=== PATIENT | male | born 1950 | race Caucasian/White ===

== ENCOUNTER 2019-04-11 15:23 | Emergency (ER) | payer MEDICARE, OTHER ==
[2019-04-11 15:45] VITALS: BP 148/83
--- NOTE | 2019-04-11 16:23 | XRAY Report ---
Reason: injury Procedure Date: 04/11/2019 Accession Number: [id number] / [id number] Procedure: XR - Ankle 3 View RT CPT Code: Final Report FULL RESULT: EXAM: RIGHT ANKLE RADIOGRAPHY EXAM DATE: 04/11/2019 04:08 PM. CLINICAL HISTORY: Injury. COMPARISON: None. TECHNIQUE: 3 views. FINDINGS: Bones: Subtle cortical step-off suggested at the lateral malleolus on the ankle mortise view, and there is a subtle transverse lucency seen of the lateral malleolus on the lateral view, suggesting a nondisplaced fracture. No tibial fracture or talar fracture detected. Joints: The ankle mortise appears preserved. No significant ankle joint effusion. Soft Tissues: No subcutaneous radiopaque foreign bodies. Soft tissue prominence at the lateral malleolus. IMPRESSION: Nondisplaced fracture at the lateral malleolus. RADIA
--- NOTE | 2019-04-11 16:24 | XRAY Report ---
Reason: injury Procedure Date: 04/11/2019 Accession Number: [id number] / [id number] Procedure: XR - Foot 3 View RT CPT Code: Final Report FULL RESULT: EXAM: RIGHT FOOT RADIOGRAPHY EXAM DATE: 04/11/2019 04:07 PM. CLINICAL HISTORY: Injury. COMPARISON: None. TECHNIQUE: 3 views. FINDINGS: Bones: A nondisplaced fracture at the lateral malleolus is suggested on the lateral view. No additional fractures detected on current imaging. Joints: No subluxations or dislocation identified. Soft Tissues: No subcutaneous radiopaque foreign body. IMPRESSION: Nondisplaced fracture at the lateral malleolus. RADIA
== END 2019-04-11 17:00 | disposition left against medical advice (07) ==
LOC: ED 15:23
DX: S82.61XA Displaced fracture of lateral malleolus of right fibula, initial encounter for closed fracture (principal); V00.311A Fall from snowboard, initial encounter; Y93.23 Activity, snow (alpine) (downhill) skiing, snowboarding, sledding, tobogganing and snow tubing; Z53.21 Procedure and treatment not carried out due to patient leaving prior to being seen by health care provider

== ENCOUNTER 2020-03-04 15:25 | Outpatient (CLI) | payer MEDICARE, OTHER | END 2020-03-04 15:26 | disposition home or self-care (01) | LOC: COV 15:25 | PROVIDERS: ATTEND Family Medicine | DX: Z20.828 Contact with and (suspected) exposure to other viral communicable diseases (principal) ==

== ENCOUNTER 2022-06-01 06:41 | Outpatient (CLI) | payer MEDICARE, OTHER ==
--- NOTE | 2022-06-01 12:29 | Ultrasound Report ---
PROCEDURE: Aorta Screening INDICATIONS: SCREENING FOR AAA TECHNIQUE: Real time scanning was performed of the aorta and iliac arteries, with image documentatio n. COMPARISON: None. FINDINGS: Aorta: Proximal aortic diameter measures 2.6 x 2.9 cm. Mid-aorta measures 2.1 x 2.5 cm. Distal aor tic diameter is 2.0 x 2.3 cm. Iliac arteries: Right common iliac artery measures 1.3 x 1.4 cm. Left common iliac artery measures 1.3 x 1.3 cm. IMPRESSION: Borderline ectatic infrarenal aorta. Five-year sonographic follow-up is recommended. Reviewed by: Benson Jordan on 06/01/2022 12:28 PM HONORIO Approved by: Benson Jordan on 06/01/2022 12:28 PM PST Station ID: [id number]
== END 2022-06-01 06:42 | disposition home or self-care (01) ==
LOC: DI 06:41
PROVIDERS: ATTEND Nurse Practitioner Family
DX: Z13.6 Encounter for screening for cardiovascular disorders (principal); I77.811 Abdominal aortic ectasia; Z87.891 Personal history of nicotine dependence

== ENCOUNTER 2022-06-10 07:00 | Outpatient (CLI) | payer MEDICARE, OTHER ==
--- NOTE | 2022-06-10 14:07 | XRAY Report ---
PROCEDURE: Chest 2 View X-Ray INDICATIONS: PRODUCTIVE COUGH TECHNIQUE: 2 views of the chest were acquired. COMPARISON: None. FINDINGS: Surgical changes and devices: None. Lungs and pleura: No pleural effusions or pneumothorax. Lungs are clear. Mediastinum: Mediastinal contours are normal. Heart size is normal. Bones and chest wall: No suspicious bony abnormalities. Soft tissues appear unremarkable. IMPRESSION: No concerning consolidation. Reviewed by: Morales Lam MD on 06/10/2022 1:05 PM SAJI Approved by: Morales Lam MD on 06/10/2022 1:05 PM SAJI Station ID: [id number]
== END 2022-06-10 07:01 | disposition home or self-care (01) ==
LOC: DI.S 07:00
PROVIDERS: ATTEND Physician Assistant
DX: R05.8 Other specified cough (principal)

== ENCOUNTER 2023-11-16 13:18 | Outpatient (CLI) | payer SELFPAY ==
--- NOTE | 2023-11-16 16:07 | CT Report ---
PROCEDURE: CT heart coronary calcium scoring without contrast TECHNIQUE: MDCT non-contrast cardiac gated images were obtained from the dung through the inferior margin of the heart. Calcium score was obtained by post-processing with external software. Automated exposure control was used to reduce patient radiation dose. INDICATION: CAD screening, low or intermediate risk COMPARISON: None FINDINGS: Image quality: Diagnostic Agatston method: Total calcium score: 0 L main: 0 LAD: 0 LCX: 4.8 RCA: 0 Subjectively, tiny focus of calcium is also seen in the LAD, not detected by the software due to the small size. Heart findings: Mitral annular calcifications: No significant calcifications. Aortic valve: Small annular or valvular calcifications Chambers: No significant enlargement on this non-dynamic study. Pericardium: Trace thickening versus fluid Other findings (note the chest is incompletely imaged on this limited non-contrast study): Lungs and pleura: No pleural effusion. No actionable lung nodules. Mediastinum: No pathologic lymphadenopathy. Upper abdomen: Partially seen, unremarkable. Bones: No acute or suspicious abnormality. IMPRESSION: Coronary calcium scores as above. Incidentals: None significant. Coronary artery calcium scores have been identified as an independent risk factor for future acute co ronary syndromes and correlate with the quantity of coronary atherosclerotic plaque. However, they do not correlate directly with the degree of stenosis. A low score does not exclude a significant coron dominic artery stenosis. Risk of future coronary events should be assessed with individual patient risk factors and medical hi story. Consider correlation with risk percentiles using the MENDEZ (Multi-Ethnic Study of Atheroscleros is) calculator. CAC-DRS Categories: A0: 0, very low risk, consider repeat coronary calcium study every 3-7 years for surveillance. A1: 1-99, mildly increased risk, consider moderate-intensity statin A2: 100-299: moderately increased risk, consider moderate to high-intensity statin + ASA 81mg A3: >300: moderately to severely increased risk, consider high-intensity statin + ASA 81mg Reviewed by: Geoff Awan MD on 11/16/2023 4:05 PM PDT Approved by: Geoff Awan MD on 11/16/2023 4:05 PM PDT Station ID: [id number]
== END 2023-11-16 13:19 | disposition home or self-care (01) ==
LOC: DI 13:18
PROVIDERS: ATTEND Family Medicine
DX: E78.2 Mixed hyperlipidemia (principal)